=== PATIENT | male | born 1945 | race Caucasian/White ===

== ENCOUNTER 2016-12-09 10:59 | Emergency (ER) | payer MEDICARE, BC ==
[~2016-12-09] VITALS: Ht 188 cm; Wt 102.3 kg
[~2016-12-09 10:59] MED LIST: /WARF25TA; /WARF5TA; ACET65TA; ACET65TA OR; ASPI81TA83 OR; FURO20TA2; Gleevec OR; LIPI20TA OR; LOPR50TA OR; NITR0.4S; OXYC10TA97 OR; PERC5TAB8; PERC7.5T8 OR; POTA10CA2; Warfarin OR; ZETI10TA; ZOCO40TA; omeprazole OR
[2016-12-09] MEDS ORDERED: RANO5TAB PO (11:13)
[2016-12-09 11:47] LABS: WHITE BLOOD COUNT 3.7 K/mm3 (4.0-10.0)
--- NOTE | 2016-12-09 11:47 | REP ---
CT Head without contrast HISTORY: Infarction COMPARISON: 08/12/2006 Areas of decreased attenuation are present in the periventricular white matter. This represents small-vessel ischemic disease. There is no intraparenchymal hemorrhage, acute infarct, mass or midline shift. The ventricular system and cortical sulci are dilated consistent with minimal volume loss. There is no extra cerebral collection. There is no fracture. The visualized sinuses are clear. IMPRESSION: 1. Small vessel ischemic disease. 2. Minimal volume loss. Signed by Aly Rosales MD 12/09/2016 11:38 A
[2016-12-09 11:48] LABS: BASO % 0.9 % (0.0-1.0); EOS # 0.2 K/mm3 (0.0-0.50); LARGE UNSTAINED CELL # 0.1 K/mm3 (0.0-0.4); LARGE UNSTAINED CELL % 2.6 % (0.0-4.0); LYMPH # 0.7 K/mm3 (1.5-4.5); LYMPH % 16.8 % (24.0-44.0); MEAN CORPUSCULAR HEMOGLOBIN 31.1 pg (27.0-33.0); MEAN CORPUSCULAR VOLUME 91.3 fl (80.0-96.0); MONO # 0.3 K/mm3 (0.0-0.8); NEUTROPHILS # 2.5 K/mm3 (1.8-7.7); NEUTROPHILS % 66.7 % (36.0-66.0); PLATELET COUNT, AUTOMATED 148 k/mm3 (150-450); RED CELL DISTRIBUTION WIDTH 13.2 % (11.5-14.5)
[2016-12-09 11:54] LABS: INR 0.97
[2016-12-09] MEDS ORDERED: ALTEPLASE 100MG INJ (J2997) As Ordered ONE (12:05)
[2016-12-09 12:11] LABS: ANION GAP 6 MEQ/L (8-16); BLOOD UREA NITROGEN 24 MG/DL (7-18); CARBON DIOXIDE LEVEL 29 MEQ/L (21-32); CHLORIDE LEVEL 107 MEQ/L (98-107); CREATININE FOR GFR 1.33 MG/DL (0.70-1.30); GLOMERULAR FILTRATION RATE 56.8 (>49); GLUCOSE, FASTING 115 MG/DL (80-110); POTASSIUM SERUM 4.4 MEQ/L (3.5-5.1); SODIUM LEVEL 142 MEQ/L (136-145)
[2016-12-09] MEDS ORDERED: ALTEPLASE 100MG INJ (J2997) IV ONE (12:15)
[2016-12-09] MEDS ORDERED: ALTEPLASE RECOMBINANT 81 MG in APPROPRIATE DILUENT 1 EA IV ONE (12:15)
--- NOTE | 2016-12-09 12:46 | REP ---
Portable chest, 11:55 a.m., single AP view, patient sitting: The comparison is 07/12/2011. There is an incomplete inspiratory effort. The left hemidiaphragm is chronically elevated, unchanged. Sternotomy wires are again noted. Lung bryson are clear. Cardiac size is normal. The logan, mediastinum, and bony thorax are unremarkable. Impression: There are no acute cardiopulmonary findings. Signed by Mukul Donohue MD 12/09/2016 12:38 P
[2016-12-09 12:57] VITALS: BP 160/92
--- NOTE | 2016-12-09 18:37 | ECGEPIP ---
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
== END 2016-12-09 13:00 | disposition short-term general hospital (02) ==
LOC: M ED 10:59
DX: I63.9 Cerebral infarction, unspecified (principal); Z86.73 Personal history of transient ischemic attack (TIA), and cerebral infarction without residual deficits; Z95.1 Presence of aortocoronary bypass graft; D72.1 Eosinophilia; Z79.82 Long term (current) use of aspirin; Z79.899 Other long term (current) drug therapy
CPT/HCPCS: 70450; 71010; 80048; 82550; 82553; 84484; 85025; 85610; 85730; 86850; 86900; 86901; 93005; 93041; 94760; 96374; 99285; J2997

== ENCOUNTER → 2017-03-03 | Outpatient (REF) | payer MEDICARE, BC ==
[~2017-03-03] MED LIST changes: +RANO5TAB PO
[2017-03-03 11:07] LABS: REASON FOR REVIEW COMPREHENSIVE REVIEW
== END ==
LOC: M LAB REF 10:23
PROVIDERS: ATTEND Internal Medicine Medical Oncology
DX: D72.1 Eosinophilia (principal)

== ENCOUNTER → 2017-09-01 | Outpatient (REF) | payer MEDICARE, BC, OTHER ==
[2017-09-01 13:44] LABS: REASON FOR REVIEW HX OF EOSINOPHILIA; SLIDE REVIEW Report; SOURCE PERIPHERAL SMEAR
== END ==
LOC: M LAB REF 13:17
DX: Z79.899 Other long term (current) drug therapy (principal); D72.1 Eosinophilia

== ENCOUNTER → 2017-12-16 | Outpatient (REF) | payer MEDICARE, BC, OTHER | LOC: M LAB REF 17:51 | DX: L72.0 Epidermal cyst (principal) | CPT/HCPCS: 88305 ==

== ENCOUNTER → 2019-02-16 | Outpatient (CLI) | payer OTHER, MEDICARE, BC ==
[~2019-02-16] MED LIST changes: -/WARF25TA; -/WARF5TA; +ASPI81CH33 PO; +ATOR1TAB21 PO; +COUM1TAB17; +COUM1TAB18; +IMAT100TAB PO; +LOPR1TAB6 PO; +LOSA50TA88 PO; +RANO500T7 PO; -RANO5TAB PO; +XARE20TA PO
--- NOTE | 2019-02-16 08:41 | REP ---
Abdominal aortic sonography: History: None ruptured abdominal aortic aneurysm. No known aneurysm. No comparison studies. . Findings: Scanning through the retroperitoneum demonstrates that the abdominal aorta is normal in caliber at the level of the diaphragmatic hiatus measuring 2.4 x 2.5 cm in AP by transverse dimension respectively. The abdominal aorta is obscured by bowel gas at the level of the main renal arteries. The distal aorta tapers to 2.6 x 2.6 cm AP by transverse dimension. The right and left common iliac arteries are normal measuring 1.2 and 1.2 cm in AP dimension respectively. No aneurysm is seen. No periaortic disease is observed. Impression: Negative abdominal aortic sonography. Electronically Signed by Ayad Thornton MD 02/16/2019 08:32 A
== END ==
LOC: M RAD 07:24
PROVIDERS: ATTEND Family Medicine
DX: I71.4 Abdominal aortic aneurysm, without rupture (principal)

== ENCOUNTER → 2019-09-27 | Outpatient (CLI) | payer MEDICARE, BC ==
[~2019-09-27] MED LIST changes: +CLOP75TA2 PO
== END ==
LOC: M LABSMTC 09:25
PROVIDERS: ATTEND Anesthesiology
DX: Z01.812 Encounter for preprocedural laboratory examination (principal); Z11.59 Encounter for screening for other viral diseases
CPT/HCPCS: C9803; U0003

== ENCOUNTER → 2019-09-29 | Outpatient (CLI) | payer MEDICARE, BC ==
--- NOTE | 2019-09-29 11:00 | ECGEPIP ---
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
== END ==
LOC: M EKG 10:03
PROVIDERS: ATTEND Anesthesiology
DX: Z01.818 Encounter for other preprocedural examination (principal); M75.121 Complete rotator cuff tear or rupture of right shoulder, not specified as traumatic; I25.2 Old myocardial infarction

== ENCOUNTER → 2020-07-17 | Outpatient (REF) | payer MEDICARE, BC ==
[~2020-07-17] MED LIST changes: +ECOT81TA5 PO
[2020-07-18 23:06] LABS: PSA TOTAL 2.6 ng/mL (0.0-4.0)
== END ==
LOC: M LAB REF 12:35
PROVIDERS: ATTEND Internal Medicine
DX: R97.20 Elevated prostate specific antigen [PSA] (principal)

== ENCOUNTER → 2021-10-17 | Outpatient (CLI) | payer MEDICARE, OTHER ==
[~2021-10-17] MED LIST changes: +IMAT100T; +LOSA50TA28 PO; -LOSA50TA88 PO; +METO1TAB7
== END ==
LOC: M LABSMTC 09:41
PROVIDERS: ATTEND Anesthesiology
DX: Z01.812 Encounter for preprocedural laboratory examination (principal)

== ENCOUNTER 2021-10-22 11:37 | Day surgery (SDC) | payer MEDICARE, OTHER ==
[~2021-10-22] VITALS: Ht 188 cm; Wt 102.4 kg
[~2021-10-22 11:37] MED LIST changes: +NS 1,000 ML IV ONE
[2021-10-22] MEDS ORDERED: LIDOCAINE 2% 100MG/5ML SDV (FOR ANES.) As Ordered ONE (12:40)
[2021-10-22] MEDS ORDERED: propofoL 200 MG/20 ML VIAL As Ordered ONE (12:40)
[2021-10-22 13:40] VITALS: BP 147/78
== END 2021-10-22 13:49 | disposition home or self-care (01) ==
LOC: M OPP 11:37
PROVIDERS: ATTEND Internal Medicine Gastroenterology
DX: Z12.11 Encounter for screening for malignant neoplasm of colon (principal); K63.5 Polyp of colon; K57.30 Diverticulosis of large intestine without perforation or abscess without bleeding; D72.119 Hypereosinophilic syndrome [HES], unspecified; Z79.02 Long term (current) use of antithrombotics/antiplatelets; Z79.1 Long term (current) use of non-steroidal anti-inflammatories (NSAID); Z79.899 Other long term (current) drug therapy; Z95.5 Presence of coronary angioplasty implant and graft; Z86.74 Personal history of sudden cardiac arrest

== ENCOUNTER → 2022-03-21 | Outpatient (CLI) | payer MEDICARE, OTHER ==
[~2022-03-21] MED LIST changes: +BICA50TA9 PO; -NS 1,000 ML IV ONE
== END ==
LOC: M ONCR 09:53
PROVIDERS: ATTEND General Practice
DX: C61 Malignant neoplasm of prostate (principal); I25.2 Old myocardial infarction; I51.9 Heart disease, unspecified; Z79.82 Long term (current) use of aspirin; Z79.899 Other long term (current) drug therapy; Z82.41 Family history of sudden cardiac death; Z82.49 Family history of ischemic heart disease and other diseases of the circulatory system; Z86.73 Personal history of transient ischemic attack (TIA), and cerebral infarction without residual deficits; Z95.5 Presence of coronary angioplasty implant and graft

== ENCOUNTER 2022-04-10 13:27 | Outpatient (RCR) | payer MEDICARE, OTHER ==
[2022-04-11] MEDS ORDERED: FLOM0.4C39 PO (11:02)
[2022-04-15] MEDS ORDERED: OXYB-54 PO (13:59)
== END 2022-04-10 23:59 | disposition home or self-care (01) ==
LOC: M ONCR 13:27
PROVIDERS: ATTEND General Practice
DX: C61 Malignant neoplasm of prostate (principal)

== ENCOUNTER → 2022-04-12 | Outpatient (CLI) | payer MEDICARE, OTHER ==
[~2022-04-12] MED LIST changes: +FLOM0.4C39 PO; +OXYB-54 PO
[2022-04-12 17:35] LABS: CALCIUM LEVEL 8.7 MG/DL (8.3-10.6); CREATININE FOR GFR 1.3 MG/DL (0.70-1.30); GLOMERULAR FILTRATION RATE 57.3 (>42); POTASSIUM SERUM 4.1 MMOL/L (3.5-5.1)
== END ==
LOC: M LAB 16:11
PROVIDERS: ATTEND Internal Medicine Cardiovascular Disease
DX: I25.10 Atherosclerotic heart disease of native coronary artery without angina pectoris (principal)

== ENCOUNTER → 2022-05-01 | Outpatient (CLI) | payer MEDICARE, OTHER ==
[~2022-05-01] VITALS: Ht 180.3 cm; Wt 109.2 kg
[~2022-05-01] MED LIST changes: +LEUPROLIDE 45MG SYRINGE KIT (LUPRON DEPOT) (FOR ONCOLOGY) IM ONE
== END ==
LOC: M ONCR 09:01
PROVIDERS: ATTEND General Practice
DX: C61 Malignant neoplasm of prostate (principal)
CPT/HCPCS: 96401; J9217

== ENCOUNTER 2022-05-10 09:20 | Outpatient (RCR) | payer MEDICARE, OTHER ==
[~2022-05-10 09:20] MED LIST changes: -LEUPROLIDE 45MG SYRINGE KIT (LUPRON DEPOT) (FOR ONCOLOGY) IM ONE
[2022-05-14] MEDS ORDERED: OXYB-54 PO (09:54)
== END 2022-05-11 ==
LOC: M ONCR 09:20
PROVIDERS: ATTEND General Practice
DX: C61 Malignant neoplasm of prostate (principal)
CPT/HCPCS: 77336; 77385; 96401; J9217

== ENCOUNTER 2022-05-20 09:16 | Outpatient (RCR) | payer MEDICARE, OTHER ==
[2022-05-20] MEDS ORDERED: IMAT100TAB PO ×2 (11:36→19:19)
== END 2022-06-11 ==
LOC: M ONCR 09:16
PROVIDERS: ATTEND General Practice
DX: C61 Malignant neoplasm of prostate (principal)

== ENCOUNTER → 2022-11-05 | Outpatient (CLI) | payer MEDICARE, OTHER ==
[~2022-11-05] MED LIST changes: +LIDOCAINE 1% MDV 20ML VIAL As Ordered ONE
[2022-11-05 12:43] VITALS: TEMP 97.5
[2022-11-05 13:23] LABS: BASO % 0.7 % (0.0-1.0); EOS # 0.2 10^3/uL (0.0-0.5); EOS % 5.6 % (0.0-3.0); HEMATOCRIT 33.4 % (42.0-52.0); HEMOGLOBIN 11.1 g/dl (13.5-17.5); LYMPH # 0.6 10^3/uL (1.5-5.0); LYMPH % 13.9 % (24.0-44.0); MEAN CORPUSCULAR HEMOGLOBIN 30.7 pg (27.0-33.0); MEAN CORPUSCULAR HGB CONC 33.2 g/dl (32.0-36.5); MEAN CORPUSCULAR VOLUME 92.3 fl (80.0-96.0); MONO # 0.7 10^3/uL (0.0-0.8); MONO % 17.1 % (2.0-8.0); NEUTROPHILS # 2.6 10^3/uL (1.5-8.5); NEUTROPHILS % 62.5 % (36.0-66.0); PLATELET COUNT, AUTOMATED 163 10^3/uL (150-450); RED BLOOD COUNT 3.62 10^6/uL (4.30-6.10); WHITE BLOOD COUNT 4.1 10^3/uL (4.0-10.0)
[2022-11-05 13:40] VITALS: BP 172/90; O2SAT 98
== END ==
LOC: M IRPRO 12:12
PROVIDERS: ATTEND Nurse Practitioner
DX: D72.19 Other eosinophilia (principal); Z79.82 Long term (current) use of aspirin; Z79.899 Other long term (current) drug therapy

== ENCOUNTER 2024-01-21 14:06 | Day surgery (SDC) | payer MEDICARE, OTHER ==
[~2024-01-21] VITALS: Ht 188 cm; Wt 103.8 kg
[~2024-01-21 14:06] MED LIST changes: +BICA50TA4 PO; -BICA50TA9 PO; +GABA-1171 PO; -LIDOCAINE 1% MDV 20ML VIAL As Ordered ONE
[2024-01-21] MEDS: NS 1,000 ML IV ONE (15:09)
[2024-01-21] MEDS ORDERED: propofoL 200 MG/20 ML VIAL As Ordered ONE (15:47)
[2024-01-21] MEDS ORDERED: LIDOCAINE 2% 100MG/5ML SDV (FOR ANES.) As Ordered ONE (15:47)
[2024-01-21 16:45] VITALS: BP 138/84; TEMP 97.3; O2SAT 99
[2024-01-27] MEDS ORDERED: MYRB50TA PO (13:16)
== END 2024-01-21 16:54 | disposition home or self-care (01) ==
LOC: M OPP 14:06
PROVIDERS: ATTEND Surgery
DX: K64.0 First degree hemorrhoids (principal); K62.7 Radiation proctitis; K57.30 Diverticulosis of large intestine without perforation or abscess without bleeding; K92.1 Melena; I25.119 Atherosclerotic heart disease of native coronary artery with unspecified angina pectoris; Z95.5 Presence of coronary angioplasty implant and graft; Z86.74 Personal history of sudden cardiac arrest; Z86.73 Personal history of transient ischemic attack (TIA), and cerebral infarction without residual deficits; Z79.02 Long term (current) use of antithrombotics/antiplatelets; Z87.891 Personal history of nicotine dependence

== ENCOUNTER → 2024-01-27 | Outpatient (CLI) | payer MEDICARE, OTHER ==
[~2024-01-27] MED LIST changes: +MESA50SU PR; +MYRB50TA PO
== END ==
LOC: M ONCR 12:33
PROVIDERS: ATTEND General Practice
DX: C61 Malignant neoplasm of prostate (principal); K62.7 Radiation proctitis; I25.10 Atherosclerotic heart disease of native coronary artery without angina pectoris; C95.10 Chronic leukemia of unspecified cell type not having achieved remission; D72.119 Hypereosinophilic syndrome [HES], unspecified; Z77.098 Contact with and (suspected) exposure to other hazardous, chiefly nonmedicinal, chemicals; Z79.01 Long term (current) use of anticoagulants; Z79.82 Long term (current) use of aspirin; Z79.899 Other long term (current) drug therapy; Z92.3 Personal history of irradiation

== ENCOUNTER → 2024-03-22 | Outpatient (CLI) | payer MEDICARE, OTHER ==
[2024-03-22 14:06] LABS: HEMATOCRIT 26.1 % (42.0-52.0); HEMOGLOBIN 7.7 g/dl (13.5-17.5); MEAN CORPUSCULAR HEMOGLOBIN 24.8 pg (27.0-33.0); MEAN CORPUSCULAR HGB CONC 29.5 g/dl (32.0-36.5); MEAN CORPUSCULAR VOLUME 84.2 fl (80.0-96.0); PLATELET COUNT, AUTOMATED 222 10^3/uL (150-450); WHITE BLOOD COUNT 4.7 10^3/uL (4.0-10.0)
[2024-03-22 14:28] LABS: ALBUMIN 3.1 G/DL (3.2-5.2); BILIRUBIN,TOTAL 0.5 MG/DL (0.3-1.2); CALCIUM LEVEL 8.7 MG/DL (8.3-10.6); CHOLESTEROL RISK RATIO 3.12 (<5); CREATININE FOR GFR 1.25 MG/DL (0.70-1.30); GLOMERULAR FILTRATION RATE 59.6 (>42); HDL CHOLESTEROL 45.7 MG/DL (>40); LDL CHOLESTEROL 67.7 MG/DL (<100); NON-HDL-C 97.3 MG/DL; POTASSIUM SERUM 4.3 MMOL/L (3.5-5.1)
== END ==
LOC: M WUC 10:33
PROVIDERS: ATTEND Nurse Practitioner Adult Health
DX: E78.5 Hyperlipidemia, unspecified (principal); I25.119 Atherosclerotic heart disease of native coronary artery with unspecified angina pectoris

== ENCOUNTER 2024-03-29 16:08 | Inpatient (IN) | payer MEDICARE, OTHER ==
[~2024-03-29] VITALS: Ht 188 cm; Wt 105.6 kg
[2024-03-29] VITALS (11 sets, daily range): BP systolic 116–171; BP diastolic 56–81; TEMP 97.9–98.6; O2SAT 97–100
[~2024-03-29 16:08] MED LIST changes: -METO1TAB7; +METO1TAB7 PO
[2024-03-29 17:20] LABS: BASO % 0.5 % (0.0-1.0); EOS # 0.1 10^3/uL (0.0-0.5); EOS % 2.7 % (0.0-3.0); LYMPH # 0.6 10^3/uL (1.5-5.0); LYMPH % 13.8 % (24.0-44.0); MEAN CORPUSCULAR HEMOGLOBIN 25.2 pg (27.0-33.0); MEAN CORPUSCULAR VOLUME 81.3 fl (80.0-96.0); MONO # 0.6 10^3/uL (0.0-0.8); MONO % 15.5 % (2.0-8.0); NEUTROPHILS # 2.8 10^3/uL (1.5-8.5); NEUTROPHILS % 67.3 % (36.0-66.0); PLATELET COUNT, AUTOMATED 176 10^3/uL (150-450); RED BLOOD COUNT 2.46 10^6/uL (4.30-6.10); WHITE BLOOD COUNT 4.1 10^3/uL (4.0-10.0)
[2024-03-29 17:28] LABS: HEMOGLOBIN 6.2 g/dl (13.5-17.5)
[2024-03-29 17:33] LABS: INR 1.32; PARTIAL THROMBOPLASTIN TIME 28.7 SECONDS (24.8-34.2); PROTHROMBIN TIME 16.7 SECONDS (12.5-14.5)
[2024-03-29 17:34] LABS: LIPASE 32 U/L (12-53)
[2024-03-29 17:36] LABS: ALBUMIN 3.1 G/DL (3.2-5.2); ALKALINE PHOSPHATASE 46 U/L (40-129); ALT/SGPT 16 U/L (7.0-40); AST/SGOT < 8 U/L (<34); BILIRUBIN,DIRECT 0.1 MG/DL (<0.4); BILIRUBIN,TOTAL 0.3 MG/DL (0.3-1.2); BLOOD UREA NITROGEN 22 MG/DL (9-23); CALCIUM LEVEL 8.6 MG/DL (8.3-10.6); CARBON DIOXIDE LEVEL 22 MMOL/L (20-31); CHLORIDE LEVEL 110 MMOL/L (98-107); CREATININE FOR GFR 1.31 MG/DL (0.70-1.30); GLOMERULAR FILTRATION RATE 56.5 (>42); GLUCOSE, FASTING 98 MG/DL (74-106); POTASSIUM SERUM 4.1 MMOL/L (3.5-5.1); SODIUM LEVEL 141 MMOL/L (136-145); TOTAL PROTEIN 5.6 G/DL (5.7-8.2)
[2024-03-29] MEDS ORDERED: NS 1,000 ML IV SCH (18:25)
[2024-03-29] MEDS ORDERED: NITROGLYCERIN 0.4MG SUBL TABLET SL PRN (19:20)
[2024-03-29] MEDS ORDERED: VITA100018 PO (19:31)
[2024-03-29] MEDS ORDERED: RANO500T2 PO (19:31)
[2024-03-29] MEDS ORDERED: ATOR80TA59 PO (19:31)
[2024-03-29] MEDS ORDERED: D3 S20002 PO (19:31)
[2024-03-29] MEDS ORDERED: HOME MED LIST COMPLETE! XX SCH (19:35)
[2024-03-29 19:45] LABS: CK-MB VALUE MASS 1.5 NG/ML (<3.6)
[2024-03-29 19:47] LABS: CPK CREATINE PHOSPHOKINASE 86 U/L (46-171); IRON (FE) 12 UG/DL (65-175); MB/CK RELATIVE INDEX 1.74 (< OR =4); PERCENT SATURATION 3.2 % (19.7-50.0); TOTAL IRON BINDING CAPACITY 376 UG/DL (250-425)
[2024-03-29 19:49] LABS: FERRITIN 9.9 NG/ML (10.5-307.3)
[2024-03-29] MEDS ORDERED: GABAPENTIN 100 MG CAP PO SCH (21:00)
[2024-03-29] MEDS: RANOLAZINE 500MG ER TAB PO SCH (22:46)
[2024-03-29] MEDS: METOPROLOL SUCC (TopROL XL) 50MG **XL** TAB PO SCH (22:48)
[2024-03-29] MEDS: TAMSULOSIN 0.4 MG CAP PO SCH (22:49)
[2024-03-29] MEDS: MESALAMINE 1,000 MG SUPP PR SCH (22:50)
[2024-03-29] MEDS: NS 1,000 ML IV ONE (22:51)
[2024-03-30] VITALS (11 sets, daily range): BP systolic 119–156; BP diastolic 59–76; TEMP 97.9–99.1; O2SAT 95–99
[2024-03-30 00:48] LABS: HEMATOCRIT 24.9 % (42.0-52.0)
[2024-03-30 01:13] LABS: BLOOD UREA NITROGEN 19 MG/DL (9-23); CALCIUM LEVEL 8.2 MG/DL (8.3-10.6); CARBON DIOXIDE LEVEL 24 MMOL/L (20-31); CHLORIDE LEVEL 111 MMOL/L (98-107); CK-MB VALUE MASS 1.3 NG/ML (<3.6); CREATININE FOR GFR 1.23 MG/DL (0.70-1.30); GLOMERULAR FILTRATION RATE > 60.0 (>42); GLUCOSE, FASTING 116 MG/DL (74-106); SODIUM LEVEL 141 MMOL/L (136-145)
[2024-03-30 01:27] LABS: MB/CK RELATIVE INDEX 1.47 (< OR =4)
[2024-03-30 06:35] LABS: HEMATOCRIT 25.9 % (42.0-52.0); HEMOGLOBIN 8.2 g/dl (13.5-17.5); MEAN CORPUSCULAR HEMOGLOBIN 25.7 pg (27.0-33.0); MEAN CORPUSCULAR HGB CONC 31.7 g/dl (32.0-36.5); MEAN CORPUSCULAR VOLUME 81.2 fl (80.0-96.0); PLATELET COUNT, AUTOMATED 178 10^3/uL (150-450); RED BLOOD COUNT 3.19 10^6/uL (4.30-6.10); WHITE BLOOD COUNT 5.4 10^3/uL (4.0-10.0)
[2024-03-30 07:00] LABS: BLOOD UREA NITROGEN 17 MG/DL (9-23); CALCIUM LEVEL 8.6 MG/DL (8.3-10.6); CARBON DIOXIDE LEVEL 25 MMOL/L (20-31); CHLORIDE LEVEL 110 MMOL/L (98-107); CREATININE FOR GFR 1.22 MG/DL (0.70-1.30); GLOMERULAR FILTRATION RATE > 60.0 (>42); GLUCOSE, FASTING 96 MG/DL (74-106); POTASSIUM SERUM 4.3 MMOL/L (3.5-5.1); SODIUM LEVEL 142 MMOL/L (136-145)
[2024-03-30 07:07] LABS: CK-MB VALUE MASS 1.5 NG/ML (<3.6); MB/CK RELATIVE INDEX 1.66 (< OR =4)
[2024-03-30] MEDS: ATORVASTATIN 20 MG TAB PO SCH (08:46)
[2024-03-30] MEDS: GABAPENTIN 100 MG CAP PO SCH (08:46)
[2024-03-30] MEDS: GLEEVEC 100 MG PO SCH (09:00)
[2024-03-30 12:14] LABS: BASO % 0.6 % (0.0-1.0); EOS # 0.2 10^3/uL (0.0-0.5); HEMATOCRIT 25.7 % (42.0-52.0); HEMOGLOBIN 8.2 g/dl (13.5-17.5); LYMPH # 0.6 10^3/uL (1.5-5.0); LYMPH % 12.2 % (24.0-44.0); MEAN CORPUSCULAR HEMOGLOBIN 25.8 pg (27.0-33.0); MEAN CORPUSCULAR HGB CONC 31.9 g/dl (32.0-36.5); MEAN CORPUSCULAR VOLUME 80.8 fl (80.0-96.0); MONO # 0.8 10^3/uL (0.0-0.8); MONO % 16.6 % (2.0-8.0); NEUTROPHILS # 3.1 10^3/uL (1.5-8.5); PLATELET COUNT, AUTOMATED 159 10^3/uL (150-450); RED BLOOD COUNT 3.18 10^6/uL (4.30-6.10); WHITE BLOOD COUNT 4.8 10^3/uL (4.0-10.0)
[2024-03-30 12:34] LABS: CK-MB VALUE MASS 1.3 NG/ML (<3.6)
[2024-03-30 12:35] LABS: MB/CK RELATIVE INDEX 1.56 (< OR =4)
[2024-03-30] MEDS: SENOKOT S TAB PO SCH (14:37)
[2024-03-30] MEDS: ACETAMINOPHEN 325 MG TAB PO PRN (17:13)
[2024-03-31 03:17] VITALS: BP 127/58; TEMP 98.3; O2SAT 95
[2024-03-31 05:52] LABS: HEMATOCRIT 27.4 % (42.0-52.0); HEMOGLOBIN 8.9 g/dl (13.5-17.5); MEAN CORPUSCULAR HEMOGLOBIN 26.6 pg (27.0-33.0); MEAN CORPUSCULAR HGB CONC 32.5 g/dl (32.0-36.5); PLATELET COUNT, AUTOMATED 160 10^3/uL (150-450); RED BLOOD COUNT 3.34 10^6/uL (4.30-6.10); WHITE BLOOD COUNT 4.7 10^3/uL (4.0-10.0)
[2024-03-31 06:17] LABS: BLOOD UREA NITROGEN 13 MG/DL (9-23); CALCIUM LEVEL 8.6 MG/DL (8.3-10.6); CARBON DIOXIDE LEVEL 26 MMOL/L (20-31); CHLORIDE LEVEL 110 MMOL/L (98-107); CREATININE FOR GFR 1.24 MG/DL (0.70-1.30); GLOMERULAR FILTRATION RATE > 60.0 (>42); GLUCOSE, FASTING 93 MG/DL (74-106); POTASSIUM SERUM 4.3 MMOL/L (3.5-5.1); SODIUM LEVEL 142 MMOL/L (136-145)
[2024-03-31 10:21] VITALS: BP 128/68; TEMP 98.2; O2SAT 98
[2024-03-31] MEDS ORDERED: SENN-52 PO (12:28)
[2024-03-31] MEDS ORDERED: FLOM0.4C39 PO (12:28)
== END 2024-03-31 14:08 | disposition home or self-care (01) | DRG 813 ==
LOC: M ED 16:08 → M ED INP 18:02 → M PCU 22:07
PROVIDERS: ADMIT General Practice; ATTEND General Practice
PROC: 30233N1 Transfusion of Nonautologous Red Blood Cells into Peripheral Vein, Percutaneous Approach (ICD-10-PCS; principal; 2024-03-29)
DX: D68.32 Hemorrhagic disorder due to extrinsic circulating anticoagulants (principal); C94.80 Other specified leukemias not having achieved remission; D62 Acute posthemorrhagic anemia; K92.2 Gastrointestinal hemorrhage, unspecified; N17.9 Acute kidney failure, unspecified; I25.10 Atherosclerotic heart disease of native coronary artery without angina pectoris; Z77.098 Contact with and (suspected) exposure to other hazardous, chiefly nonmedicinal, chemicals; E83.42 Hypomagnesemia; E78.00 Pure hypercholesterolemia, unspecified; I10 Essential (primary) hypertension; Z96.642 Presence of left artificial hip joint; Z96.651 Presence of right artificial knee joint; K62.7 Radiation proctitis; Z79.82 Long term (current) use of aspirin; Z79.01 Long term (current) use of anticoagulants; Z79.899 Other long term (current) drug therapy; Z95.5 Presence of coronary angioplasty implant and graft; I25.2 Old myocardial infarction; Z85.46 Personal history of malignant neoplasm of prostate; Z92.3 Personal history of irradiation; Z99.3 Dependence on wheelchair

== ENCOUNTER → 2024-04-15 | Outpatient (REF) | payer MEDICARE, OTHER ==
[~2024-04-15] MED LIST changes: +ATOR80TA59 PO; +D3 S20002 PO; +RANO500T2 PO; +SENN-52 PO; +VITA100018 PO
== END ==
LOC: M LAB REF 12:12
PROVIDERS: ATTEND Internal Medicine
DX: D62 Acute posthemorrhagic anemia (principal)

== ENCOUNTER → 2024-07-27 | Outpatient (CLI) | payer MEDICARE, OTHER | LOC: M ONCR 12:50 | PROVIDERS: ATTEND General Practice | DX: C61 Malignant neoplasm of prostate (principal); C94.80 Other specified leukemias not having achieved remission; R35.1 Nocturia; Z77.098 Contact with and (suspected) exposure to other hazardous, chiefly nonmedicinal, chemicals; Z79.622 Long term (current) use of Janus kinase inhibitor; Z79.899 Other long term (current) drug therapy; Z92.3 Personal history of irradiation; Z92.29 Personal history of other drug therapy | CPT/HCPCS: 36415; 84153; G0463 ==

== ENCOUNTER → 2024-09-22 | Outpatient (CLI) | payer MEDICARE, OTHER ==
[~2024-09-22] MED LIST changes: -FLOM0.4C39 PO; +TAMS-18 PO
== END ==
LOC: M WUC 11:44
PROVIDERS: ATTEND Physician Assistant
DX: R05.9 Cough, unspecified (principal)

== ENCOUNTER → 2024-12-10 | Outpatient (REF) | payer MEDICARE, OTHER | LOC: M LAB REF 14:16 | PROVIDERS: ATTEND General Practice | DX: C61 Malignant neoplasm of prostate (principal) ==